=== PATIENT | male | born 1995 | race Caucasian/White ===

== ENCOUNTER 2016-09-06 09:33 | Inpatient (IN) | payer OTHER ==
--- NOTE | ~2016-09-06 | DS ---
Unit #: [id number] #: [id number] Patient: GRIS CARDENAS [id number] [address] [place], [place] [address] [id number] MR#: [id number] NAME: GRIS CARDENAS. ROOM: 457 Age: 21 Sex: M Admission Date: 09/06/2016 : 1995 Discharge Date: 09/08/2016 Attending Physician: Alba Soria M.D. Primary Care Physician: Sallie Thompson M.D. DISCHARGE SUMMARY SERVICE Orthopedic Surgery. REASON FOR ADMISSION TO THE HOSPITAL Postoperative pain control after reconstructive foot and ankle surgery. PREOPERATIVE DIAGNOSES 1. Left posterior tibial tendon dysfunction. 2. Pain in left limb. 3. Left gait abnormality. POSTOPERATIVE DIAGNOSES 1. Left posterior tibial tendon dysfunction. 2. Pain in left limb. 3. Left gait abnormality. DISCHARGE DIAGNOSES 1. Left posterior tibial tendon dysfunction. 2. Pain in left limb. 3. Left gait abnormality. CHIEF COMPLAINT Left foot pain and deformity. HISTORY OF PRESENT ILLNESS The patient is a 21-year-old male who presents with chronic left foot and ankle pain and deformity, which have failed to respond to a CAM walker boot and an Conchis brace. X-rays and CT show approximately 50% talonavicular subluxation with marked flattening of the longitudinal arch of the foot and no evidence of tarsal coalition. There is significant subluxation of both the Chopart joints and medial plantar arch and lateral hindfoot. The patient was therefore to be admitted for left triple arthrodesis, proximal tibial bone graft, and Cotton osteotomy. HOSPITAL COURSE The patient was admitted to the hospital on 09/06/2016. He was taken to the operating room for left triple arthrodesis, proximal tibial bone graft, and Cotton osteotomy. Postoperatively, the patient tolerated the procedure and anesthesia well. The patient was then transferred to the orthopedic floor unit where he was monitored for 2 days. He tolerated postoperative day one, well. He worked with physical therapy. On postoperative day 2, his dressings were changed. His incisions were clean, dry, and intact with no evidence of any infection. His labs were Unit #: [id number] #: [id number] Patient: GRIS CARDENAS all stable. On postoperative day 2, the patient was subsequently discharged from the hospital to home with his family in an apparent satisfactory condition. DISCHARGE DISPOSITION Home. CONDITION Stable. MEDICATIONS Percocet 5/325, take one tablet by mouth every 6 hours as needed for pain, dispensed #40; Xarelto 10 mg, take one tablet by mouth once daily x2 weeks for DVT prophylaxis. FOLLOWUP The patient is going to follow up with Dr. Elijah Soria in 10 days for a postoperative appointment. Dictated by... Chito Wisdom M.D. for Alba Soria M.D. MIREYA/ramon TD: 09/09/2016 02:45 JOB #: [id number] DISCHARGE SUMMARY Page 1 of 1 X X DISCHARGE SUMMARY
--- NOTE | ~2016-09-06 | HP ---
Unit #: [id number] #: [id number] Patient: GRIS CARDENAS [id number] [facility]. [place], [place] [address] [id number] MR#: [id number] NAME: GRIS CARDENAS. ROOM: [facility] Age: Sex: M Admission Date: 09/06/2016 : 1995 Attending Physician: Alba Soria M.D. Primary Care Physician: Sallie Thompson M.D. HISTORY AND PHYSICAL DATE OF ANTICIPATED ADMISSION/PROCEDURE September 06, 2016 CHIEF COMPLAINT Left foot pain and deformity. HISTORY OF PRESENT ILLNESS The patient is a 21-year-old male who presents with chronic left foot and ankle pain and deformity which has failed to respond to a CAM walker boot and to an Conchis brace. Radiographs and CT scan show 50% talonavicular joint subluxation with marked flattening of the longitudinal arch and no evidence of tarsal coalition. He has significant subluxation of both Chopart joints and has significant pain in his plantar medial arch and lateral hindfoot. The patient is therefore admitted for left foot triple arthrodesis, proximal tibial bone graft, gastrocnemius recession, and possible Cotton procedure. PAST MEDICAL HISTORY Morbid obesity. PAST SURGICAL HISTORY None. MEDICATIONS Ibuprofen. ALLERGIES None. SOCIAL HISTORY The patient is a nonsmoker and nondrinker. He is attending school for [employer]. PHYSICAL EXAMINATION GENERAL: This is a morbidly obese male in no acute distress. His weight is in excess of 340 pounds. HEENT: Pharynx is clear. NECK: Supple without masses. HEART: Regular sinus rhythm without murmurs or gallops. LUNGS: Clear. ABDOMEN: Soft and nontender without masses or organomegaly. EXTREMITIES: Evaluation of the symptomatic left foot shows a flat arch with 10 degrees of heel valgus. He has a 10 degree equinus contracture. Left ankle plantar flexion is 40 degrees. Subtalar motion is limited to 5 Unit #: [id number] #: [id number] Patient: GRIS CARDENAS degrees inversion and 5 degrees eversion. First MTP joint motion is normal. Pulses are palpated. Sensation is normal. He has 5+ over 5 motor strength. Upon heel rises, the arches do not reconstitute, and his hindfoot does not correct to varus. DIAGNOSTIC STUDIES IMAGING: Standing x-rays of the left ankle show no ankle valgus. He has a significant abducto planovalgus deformity with a 14 degree calcaneal pitch and loss of coverage of the talar head of 50%. The Meary angle is approximately -20 and the medial cuneiform height is [address] scan shows no evidence of tarsal coalition. 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 PLAN The patient has failed nonoperative care. He cannot walk or stand. He has pain with activities of daily living. He has failed bracing. He is therefore admitted for left foot triple arthrodesis, gastrocnemius recession, Cotton procedure, and proximal tibial bone graft. This procedure was described along with the risks of bleeding, infection, nerve damage, need for further surgery in the future, prolonged recovery time, deep venous thrombosis, pulmonary embolism, anesthetic complications, nonunion, malunion, and persistent swelling for up to one year. He understands the above risks and agrees to proceed. Dictated by Alissa Paulino/raegan TD: 09/05/2016 22:21 JOB #: [id number] HISTORY AND PHYSICAL Page 1 of 1 X Saul Soria MD HISTORY AND PHYSICAL
--- NOTE | ~2016-09-06 | OR ---
Unit #: [id number] #: [id number] Patient: GRIS CARDENAS [id number] [address] [place], [place] [address] [id number] MR#: [id number] NAME: GRIS CARDENAS. ROOM: [facility] Date of Procedure: 09/06/2016 Admission Date: 09/06/2016 Surgeon: Alba Soria M.D. : 1995 Attending Physician: Alba Soria M.D. Primary Care Physician: Sallie Thompson M.D. OPERATIVE REPORT PREOPERATIVE DIAGNOSES 1. Painful left pes abducto planovalgus. 2. Left talonavicular subluxation. 3. Left fixed forefoot varus. POSTOPERATIVE DIAGNOSES 1. Painful left pes abducto planovalgus. 2. Left talonavicular subluxation. 3. Left fixed forefoot varus. PROCEDURES PERFORMED 1. Left triple arthrodesis (18229). 2. Left dorsal opening wedge osteotomy of medial cuneiform (cotton procedure) (61088). 3. Left proximal tibial bone graft (03563). ASSISTANTS MD Senthil and ANNAMARIA Wisdom. ANESTHESIA General and popliteal saphenous block. INDICATIONS FOR THE PROCEDURE The patient is a 21-year-old morbidly obese male with painful left pes abducto planovalgus unresponsive to conservative care. Radiographs showed 50% uncovering of the talonavicular joint with lateral impingement of the subtalar joint. He has significant stiffness and painful motion of the subtalar joint. He is therefore to undergo triple arthrodesis. DESCRIPTION OF PROCEDURE The patient was taken to the operating room and placed in supine position. General anesthetic was induced. The left foot was identified as the correct operative extremity during the time-out procedure. The IV antibiotic protocol was followed. The left leg was prepped and draped in the usual sterile fashion. The leg was exsanguinated and the thigh tourniquet inflated to 300 mmHg. A popliteal saphenous block was performed preoperatively in the anesthesia holding area. A lateral longitudinal incision was made over the sinus tarsi ending at the fourth metatarsal base. Subcutaneous tissue was divided. The extensor digitorum brevis muscle was split longitudinally. The sinus tarsi contents were excised. A laminar signal maintainer helper was used to distract the Unit #: [id number] #: [id number] Patient: GRIS CARDENAS subtalar joint. The power osteotome, curved curettes, and rongeurs were utilized to remove the articular cartilage from both sides of the subtalar joint addressing all three facets. The underlying subchondral bone was feathered with the power osteotome. The calcaneocuboid joint was exposed with baby Hohmann retractors and distracted with a laminar signal maintainer helper. The power osteotome, curved curettes, and rongeurs were utilized to remove the articular cartilage from both sides of the joint. The underlying subchondral bone was feathered with the power osteotome. A dorsomedial longitudinal incision measuring 5 cm was made over the talonavicular joint. Subcutaneous tissue was carefully divided. The joint capsule was opened and the talonavicular joint was exposed and distracted with a laminar signal maintainer helper. The power osteotome, curved curettes, and rongeur were utilized to remove the articular cartilage from both sides of the talonavicular joint. The underlying subchondral bone was feathered with the power osteotome. A 5 cm curvilinear proximal lateral tibial incision was made. The subcutaneous tissue was divided. The extensor fascia was opened. The lateral proximal tibial cortex was exposed subperiosteally. A 1 x 2 cm cortical window was made with the power osteotome. A large amount of cancellous graft was then harvested and packed into the subtalar joint, talonavicular joint, and calcaneocuboid joint. The donor site was irrigated and then backfilled with allograft bone chips. The cortical window was replaced. The muscle fascia was then repaired meticulously with 0 Vicryl [id number] sutures. The subtalar joint was then reduced by internally rotating the calcaneus under the talus. The subtalar joint was then fixated with two Arthrex 6.7 mm diameter cannulated screws placed from the posterior inferior heel into the talar neck and body. Excellent fixation was achieved. A Steinmann pin was then drilled across the cuboid and navicular. This was used as a handle bar to reduce the midfoot onto the talar head. The talus was then fixated with a 6.7 mm diameter cannulated Arthrex screw placed from distal to proximal. The calcaneocuboid joint was likewise fixated with a 6.7 mm diameter Arthrex screw placed from distal to proximal. Excellent fixation was achieved. Following all of this fixation, the ankle joint dorsiflex to 5 degrees, but there was still some residual forefoot varus of about 10 degrees, therefore cotton procedure was required. A dorsal longitudinal incision was made over the medial cuneiform. Subcutaneous tissue was divided. The medial cuneiform was exposed subperiosteally. A guide pin was placed in a center-center position into the medial cuneiform and position was confirmed with mini C-arm fluoroscopy. The pin was left in place to act as a guide for the microsagittal saw to make a dorsal to plantar cut in the middle of the middle cuneiform. The osteotomy was then distracted. A Morrison allograft bone wedge measuring 7 mm in diameter was then impacted into place and then fixated with an Arthrex 4.0 mm diameter cannulated screw placed from dorsal distal to plantar proximal. Excellent fixation was achieved. The forefoot was rectus. The hindfoot was neutral and the talonavicular coverage was restored to almost 100%. The tourniquet was released with a total tourniquet time of 2 hours 10 minutes. Bleeding was controlled with electrocautery. The deep muscle fascia was closed with 2-0 Vicryl, Unit #: [id number] #: [id number] Patient: GRIS CARDENAS subcutaneous tissue was closed with 3-0 Vicryl, and the skin was closed with 3-0 nylon horizontal mattress sutures. Xeroform gauze, dressing, sponges, Webril, and a posterior fiberglass splint were applied. The patient was then transported to the recovery room in stable condition. ESTIMATED BLOOD LOSS 100 mL. COMPLICATIONS None. SPECIMENS None. TOURNIQUET TIME 2 hours 10 minutes. Dictated byAlissa Alvarez/ramon TD: 09/06/2016 21:03 JOB #: [id number] OPERATIVE REPORT Page 1 of 1 X Saul Soria MD X PROCEDURE OPERATIVE NOTE
--- NOTE | ~2016-09-06 | BMI ---
[facility] Nutrition Therapy DATE: 09/07/16 Patient: GRIS CARDENAS Physician: JACEY Address: [address] [place] [address] Room/Bed: [address] [place] [address], Zip: [place] [address] Admit Date: 09/06/16 Date of : [birth year] Height: 6 1 Weight: 356 161.8 HIGH BMI NOTE: ANTHROPOMETRICS: HT: 73" WT: 118 KG BMI: 44.7 INTERVENTION: 1. HEART HEALTHY/ HENRY DIET RECOMMENDATIONS: 1. CONTINUE CURRENT DIET IN ORDER TO PROMOTE GRADUAL WEIGHT LOSS TOWARDS A HEALTHY BMI. Respectfully, INESSA GANDARA RD, LD [facility] cc: client file
[~2016-09-06 09:33] MED LIST: IBUPROFEN800 MG PO
[2016-09-07 03:49] LABS: HEMATOCRIT 37.3 % (38.0-50.0); HEMOGLOBIN 11.9 gm/dL (13.0-16.0)
[2016-09-08] MEDS ORDERED: XARELTO10 MG PO (10:42)
[2016-09-08] MEDS ORDERED: PERCOCET5/325 PO (10:43)
== END 2016-09-08 11:25 | disposition home or self-care (01) | DRG 504 ==
LOC: CSUR 09:33 → CPACUOF 09:41 → C4B 16:15
PROVIDERS: Orthopaedic Surgery
PROC: 0QBM0ZZ Excision of Left Tarsal, Open Approach (ICD-10-PCS; 2016-09-06)
PROC: 0SGJ07Z Fusion of Left Tarsal Joint with Autologous Tissue Substitute, Open Approach (ICD-10-PCS; principal; 2016-09-06 12:00)
PROC: 0SGJ07Z Fusion of Left Tarsal Joint with Autologous Tissue Substitute, Open Approach (ICD-10-PCS; 2016-09-06 12:00)
PROC: 0SGJ07Z Fusion of Left Tarsal Joint with Autologous Tissue Substitute, Open Approach (ICD-10-PCS; 2016-09-06 12:00)
DX: M21.6X2 Other acquired deformities of left foot (principal); Z68.42 Body mass index [BMI] 45.0-49.9, adult; E66.01 Morbid (severe) obesity due to excess calories; R26.9 Unspecified abnormalities of gait and mobility; M79.662 Pain in left lower leg
CPT/HCPCS: 85014; 85018; 94760; 94761; 97116; 97161; 97530; C1713; J0690; J1100; J2250; J2270; J2405; J2795; J3010